=== PATIENT | male | born 2000 | race Caucasian/White ===

== ENCOUNTER 2021-02-06 18:46 | Emergency (ER) | payer OTHER ==
[~2021-02-06] VITALS: Ht 188 cm; Wt 74.8 kg
[2021-02-06] MEDS ORDERED: CEPH500 PO (20:58)
[2021-02-08 06:10] LABS: HIV SCREEN 4TH GENERATION WRFX Non Reactive (Non Reactive)
[2021-02-08 07:10] LABS: HCV ANTIBODY <0.1 (0.0-0.9)
== END 2021-02-06 21:00 | disposition home or self-care (01) ==
LOC: ER 18:46
PROVIDERS: Physician Assistant
DX: S61.217A Laceration without foreign body of left little finger without damage to nail, initial encounter (principal); W26.8XXA Contact with other sharp object(s), not elsewhere classified, initial encounter; Y93.89 Activity, other specified; Y92.524 Gas station as the place of occurrence of the external cause; Y99.0 Civilian activity done for income or pay
CPT/HCPCS: 86317; 86803; 87389; 99283